=== PATIENT | male | born 1985 | race Two or more races ===

== ENCOUNTER 2024-09-19 16:42 | Emergency (ER) | payer MEDICAID ==
[~2024-09-19] VITALS: Ht 180.3 cm; Wt 90.0 kg
[2024-09-19] MEDS ORDERED: MORPHINE SULFATE 4 MG/ML SYR/VIAL IM ONE (17:00)
[2024-09-19 17:11] LABS: Urine Bacteria None Seen /hpf (None Seen)
[2024-09-19 17:17] LABS: Basophils # (auto) 0.1 10 ^3/uL (0-0.2); Eosinophils # (auto) 0.1 10 ^3/uL (0-0.8); Eosinophils % (auto) 1.1 % (0.0-7.0); Hemoglobin 13.4 g/dL (13.5-17.5); Nucleated Red Blood Cells % 0.1 %
[2024-09-19 17:18] LABS: Basophils % (auto) 0.8 % (0.0-2.0); Hematocrit 41.2 % (41.0-53.0); Lymphocytes # (auto) 1.7 10 ^3/uL (0.4-5.4); Lymphocytes % (auto) 18.1 % (10.0-50.0); Mean Corpuscular Hemoglobin 26.1 pg (28.0-32.0); Mean Corpuscular Hgb Conc. 32.6 g/dL (32.0-36.0); Mean Corpuscular Volume 80.1 fL (80.0-100.0); Monocytes # (auto) 0.6 10 ^3/uL (0-1.3); Monocytes % (auto) 6.9 % (0.0-12.0); Neutrophils # (auto) 6.8 10 ^3/uL (1.6-8.6); Neutrophils % (auto) 73.1 % (37.0-80.0); Platelet Count (auto) 332 10^3/uL (140-450); Red Blood Cells 5.14 10^6/uL (4.5-5.90); Red Cell Distribution Width 15.3 % (11.8-14.3); White Blood Cell 9.3 10^3/uL (4.4-10.8)
[2024-09-19 17:59] LABS: Urine Blood 2+ /uL (Negative); Urine Clarity Clear (Clear); Urine Color Yellow (Yellow); Urine Mucus FEW (None Seen); Urine Protein, UAD TRACE (Negative); Urine Specific Gravity 1.035 (1.001-1.035); Urine Squamous Epithelial Cell FEW /hpf (<5); Urine Urobilinogen Normal (Negative); Urine WBC 3 /hpf (0 - 3)
--- NOTE | 2024-09-19 19:18 | DVH ---
Exam: CT CT AB PEL WO CON-NO ORAL OR IV History: abd pain Comparison Study: None available at time of dictation. TECHNIQUE: Multidetector CT of the abdomen was performed from lung bases to pubic symphysis. Imaging was performed without IV contrast. Axial, coronal and sagittal multiplanar reformats were obtained fr om the axial data set by the technologist. Radiation Dose Information: CT Dose: CTDI volume is 7.15 mGy. Dose-length product is 384.69 mGy*cm FINDINGS: Evaluation of solid organs is limited due to lack of intravenous contrast use. Findings: Lung Bases: No acute or significant lung base finding. Normal heart size. No pleural or pericardial effusion. Liver: The liver is normal in size. No focal lesions. Gallbladder and Biliary Tree: Unremarkable Spleen: Unremarkable Pancreas: The pancreas is grossly normal in appearance. Adrenal Glands: Unremarkable Kidneys: Small bilateral renal calculi . Mild left hydronephrosis with hydroureter to the pelvis wher e there is a 5.7 mm distal left ureteral calculus. Bladder: Grossly unremarkable for degree of distention. Bowel: The stomach is grossly normal in appearance. Small bowel and colon are normal in caliber and d istribution. Contrast is noted scattered throughout the colon no findings to suggest bowel obstructio n. The appendix is not visualized; however, no secondary findings of acute appendicitis identified. Ascites: Absent Lymphadenopathy: No mesenteric, retroperitoneal or periportal lymphadenopathy. Abdominal Wall and Mesentery: Unremarkable. Vasculature: The visualized abdominal aorta is normal in size and caliber. Evaluation of abdominal a nd pelvic vessels is limited due to lack of intravenous contrast. Pelvic Organs: Unremarkable Musculoskeletal: No aggressive focal bony lesions, acute fractures or dislocation. Soft tissues: Unremarkable IMPRESSION: 1. Scattered calculi in both kidneys with mild left hydronephrosis and hydroureter to the distal uret er where there is a 5.7 mm calculus. Radiation optimization: All CT scans at this facility use at least one of these dose optimization te chniques: automated exposure control mA and/or kV adjustment per patient size (includes targeted exa ms where dose is matched to clinical indication) or iterative reconstruction. HS:Y
[2024-09-19] MEDS ORDERED: TAMS-35 PO (19:31)
[2024-09-19] MEDS ORDERED: HYDR-4902 PO (19:31)
--- NOTE | 2024-09-19 19:33 | ED.PDOC ---
GI ASSESSMENT HPI Comments 38-year-old male complaining of left lower quadrant pain x2 days. Pain has been getting worse. Reports 06/10 pain. Nothing makes it better, nothing makes it worse. No new foods no new medications. No prior history kidney stones no prior history of abdominal surgeries. Chief Complaint: Abdominal Pain Time Seen by MD: 16:50 Reviewed Notes: Nurses Notes Allergies: Coded Allergies: NO KNOWN ALLERGIES (Unverified , 09/19/24) Information Source: Patient Mode of Arrival: Ambulatory Past Medical History PAST MEDICAL HISTORY: Denies Surgical History: Denies all surgeries Constitutional: denies: chills, diaphoresis, fatigue, fever, malaise, sweats, weakness, others EENTM: denies: blurred vision, double vision, ear bleeding, ear discharge, ear drainage, ear pain, ear ringing, eye pain, eye redness, hearing loss, mouth pain, mouth swelling, nasal discharge, nose bleeding, nose congestion, nose pain, photophobia, tearing, throat pain, throat swelling, voice changes, others Respiratory: denies: cough, hemoptysis, orthopnea, SOB at rest, shortness of breath, SOB with excertion, stridor, wheezing, others Cardiovascular: denies: chest pain, dizzy spells, diaphoresis, Dyspnea on exertion, edema, irregular heart beat, left arm pain, lightheadedness, palpitations, PND, syncope, others Gastrointestinal: reports: abdomen distended, abdominal pain; denies: blood streaked bowels, constipated, diarrhea, dysphagia, difficulty swallowing, hematemesis, melena, nausea, poor appetite, poor fluid intake, rectal bleeding, rectal pain, vomiting, others Genitourinary: denies: burning, dysuria, flank pain, frequency, hematuria, incontinence, penile discharge, penile sore, pain, testicle pain, testicle swelling, urgency, others Neurological: denies: dizziness, fainting, headache, left sided numbness, left sided weakness, numbness, paresthesia, pre-existing deficit, right sided numbness, right sided weakness, seizure, speech problems, tingling, tremors, weakness, others Musculoskeletal: reports: back pain; denies: gout, joint pain, joint swelling, muscle pain, muscle stiffness, neck pain, others Integumetry: denies: bruises, change in color, change in hair/nails, dryness, laceration, lesions, lumps, rash, wounds, others Allergic/Immunocompromised: denies: Difficulty Healing, Frequent Infections, Hives, Itching, others Physical Exam General Appearance: No Apparent Distress, Normal HEENT: Normal ENT Inspection, Pharynx Normal, TMs Normal Neck: Full Range of Motion, Non-Tender, Normal, Normal Inspection Respiratory: Chest Non-Tender, Lungs Clear, No Accessory Muscle Use, No Respiratory Distress, Normal Breath Sounds Cardiovascular: No Edema, No JVD, No Murmur, No Gallop, Normal Peripheral Pulses, Regular Rate/Rhythm Breast Exam: Deferred Gastrointestinal: LLQ, LUQ, No Organomegaly, Normal Bowel Sounds, Soft, Tenderness (Tender to palpation over left quadrants.) Genitalia: Deferred Pelvic: Deferred Rectal: Deferred Extremities: No calf tenderness, Normal capillary refill, Normal inspection, Normal range of motion, Non-tender, No pedal edema Musculoskeletal : Apperance: Normal Neurologic: Alert, clinical research physician II-XII nml as Tested, No Motor Deficits, Normal Affect, Normal Mood, No Sensory Deficits Cerebellar Function: Normal Reflexes: Normal Skin: Dry, Normal Color, Warm Lymphatic: No Adenopathy Was a procedure done? Was a procedure done?: No GI differential Dx Differential Diagnosis: Bowel Obstruction, Cholecystitis, Gastritis/PUD, Gastroenteritis, Pancreatitis, , Bacterial, Kidney Stone X-Ray, Labs, Meds, VS Vital Signs Date Time Temp Pulse Resp B/P (MAP) Pulse Ox O2 Delivery O2 Flow Rate FiO2 09/19/24 16:55 98.6 66 16 139/83 (101) 100 Lab Test 09/19/24 17:02 09/19/24 16:53 Range/Units White Blood Count 9.3 4.4-10.8 10^3/uL Red Blood Count 5.14 4.5-5.90 10^6/uL Hemoglobin 13.4 L 13.5-17.5 g/dL Hematocrit 41.2 41.0-53.0 % Mean Corpuscular Volume 80.1 80.0-100.0 fL Mean Corpuscular Hemoglobin 26.1 L 28.0-32.0 pg Mean Corpuscular Hemoglobin Concent 32.6 32.0-36.0 g/dL Red Cell Distribution Width 15.3 H 11.8-14.3 % Platelet Count 332 140-450 10^3/uL Mean Platelet Volume 7.4 6.9-10.8 fL Neutrophils (%) (Auto) 73.1 37.0-80.0 % Lymphocytes (%) (Auto) 18.1 10.0-50.0 % Monocytes (%) (Auto) 6.9 0.0-12.0 % Eosinophils (%) (Auto) 1.1 0.0-7.0 % Basophils (%) (Auto) 0.8 0.0-2.0 % Neutrophils # (Auto) 6.8 1.6-8.6 10 ^3/uL Lymphocytes # (Auto) 1.7 0.4-5.4 10 ^3/uL Monocytes # (Auto) 0.6 0-1.3 10 ^3/uL Eosinophils # (Auto) 0.1 0-0.8 10 ^3/uL Basophils # (Auto) 0.1 0-0.2 10 ^3/uL Nucleated Red Blood Cells 0.1 % Lipase 30 12-53 U/L Urine Color Yellow Yellow Urine Clarity Clear Clear Urine pH 6.0 5.0-9.0 Urine Specific [place] 1.035 1.001-1.035 Urine Protein Trace H Negative Urine Ketones 1+ H Negative Urine Blood 2+ H Negative /uL Urine Nitrite Negative Negative Urine Bilirubin Negative Negative Urine Urobilinogen Normal Negative mg/dL Urine Leukocyte Esterase Negative Negative /uL Urine RBC 34 0 - 3 /hpf Urine WBC 3 0 - 3 /hpf Urine Squamous Epithelial Cells Few <5 /hpf Urine Bacteria None seen None Seen /hpf Urine Mucus Few None Seen Urine Glucose Normal Normal mg/dL X-Ray, Labs, Meds, VS Comment Imaging: X-rays and CT scans were reviewed and interpreted by this provider, 5 mm kidney stone on left side. Pending radiology review. Laboratory: Labs reviewed and interpreted by this provider. No significant abnormalities noted. Patient has prior medical visits reviewed. Med reconciliation performed Vital signs reviewed Time of 1ST Reevaluation: 19:32 Reevaluation 1ST: Improved Patient Education/Counseling: Diagnosis, Treatment, Need For Follow Up (Patient advised to follow-up in the emergency room in the next 24 to 48 hours if symptoms do not improve. Advised follow-up with PCP in the next 3 to 5 days. Patient verbalized understanding. ) Family Education/Counseling: Diagnosis Departure 1 Departure Time of Disposition: 19:28 Impression: Primary Impression: Kidney stone on left side Disposition: HOME / SELF CARE / HOMELESS Condition: Fair e-Prescriptions Hydrocodone-Acetaminophen (Hydrocodone Bitartrate/AC 5-325 mg) 1 Tab Tab 1 TAB PO TID PRN, #20 TAB Prov: SOLITARIO WALKER 09/19/24 Tamsulosin Hcl (Flomax) 0.4 Mg Cap 1 CAP PO DAILY for 10 Days, #10 CAP 11 Refills Prov: SOLITARIO WALKER 09/19/24 Discharged With: Self Critical Care Note Critical Care Time?: No Stability Stability form required: No Heart Score Heart Score: Heart Score Response (Comments) Value History N/A 0 EKG N/A 0 Age N/A 0 Risk Factors N/A 0 Troponin N/A 0 Total 0 SOLITARIO WALKER Sep 19, 2024 19:33
[2024-09-19 19:43] LABS: Albumin 4.6 g/dL (3.2-4.8); Alkaline Phosphatase 86 U/L (46-116); Anion Gap 10 (5-15); Aspartate Aminotransferase 35 U/L (13-40); BUN/Creatinine Ratio 6.8 (10.0-20.0); Blood Urea Nitrogen 16 mg/dL (9-23); Carbon Dioxide 24 mmol/L (20-31); Chloride 102 mmol/L (98-107); Glucose 93 mg/dL (74-106); Potassium 3.8 mmol/L (3.5-5.1)
[2024-09-19 19:44] LABS: Bilirubin, Total 0.8 mg/dL (0.2-1.0)
[2024-09-19 19:45] LABS: Alanine Aminotransferase 84 U/L (7-40); Calcium 10.5 mg/dL (8.7-10.4); Sodium 136 mmol/L (136-145)
[2024-09-19 20:15] VITALS: BP 125/84; PULSE 55; RESP 19; TEMP 97.8
[2024-09-19 20:16] VITALS: O2SAT 99
[2024-09-19] MEDS: KETOROLAC TROMETH 30 MG/ML 1ML VIAL IM ONE (20:26)
[2024-09-19] MEDS: ONDANSETRON ODT 4 MG TAB PO ONE (20:26)
== END 2024-09-19 20:27 | disposition home or self-care (01) ==
LOC: ER 16:42
DX: N13.2 Hydronephrosis with renal and ureteral calculous obstruction (principal)
CPT/HCPCS: 36415; 74176; 80053; 81001; 83690; 85025; 96372; 99285; J1885; Q0162

== ENCOUNTER 2024-09-22 15:44 | Inpatient (IN) | payer MEDICAID ==
[~2024-09-22] VITALS: Ht 182.9 cm; Wt 94.2 kg
[~2024-09-22 15:44] MED LIST: HYDR-4902 PO; TAMS-35 PO
--- NOTE | 2024-09-22 16:54 | ED.PDOC ---
General HPI Comments HPI: Poor Historian. HPI: 38 year old male presents to the ED with chief complaint of left flank pain. Patient reports that he has been experiencing LUQ abdominal pain that radiates to his left sided flank pain for the past 4 days. Patient relays that he had been seen by the ED 2 days ago for the same complaint and was found to have a kidney stone in the left kidney, so he was prescribed Flomax and [place]. 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 Patient states he has associated symptoms of difficulty urinating and constipation. Patient denies any N/V/D, dizziness, fever, chills, dysuria, or hematuria. Initial Vitals: Temp: 98.3F BP: 163/98 HR: 127 RR: 18 O2 Sat.: 98% Past Medical History: Denies Past Surgical History: Denies Social History: Denies smoking, ETOH, and drug use Medication: Denies Allergies: NKDA NASREEN REVIEW OF SYSTEMS: CONSTITUTIONAL: Denies acute: fever, diaphoresis, chills, generalized weakness. HEAD: Denies acute: headache, photophobia Eyes: Denies acute: Double vision, vision loss, eye pain, eye discharge. EARS: Denies acute: tinnitus, hearing loss, ear discharge, ear pain, THROAT: Denies acute: sore throat, swelling, difficulty swallowing , pain with swallowing, change in voice. NECK: Denies acute: neck pain, neck swelling, stiff neck. HEART: Denies acute : chest pain, palpitations, LUNGS: Denies acute: SOB, wheezing, cough, hemoptysis ABDOMEN: Denies acute: abdominal pain, Nausea, Vomiting, diarrhea, melena , hematemesis, hematochezia SKIN: Denies acute: rash, redness, lesions, itchiness. EXTREMITIES: Denies acute: calf pain, numbness, tingling, weakness, denies pain in extremity. Denies acute: Low back pain. Neuro: Denies acute: focal neurological deficit, motor or sensory focal neurological deficit, tremors, seizure like activity, confusion, dizziness, change in mental status, loss of bowel or bladder function, cauda equina like symptoms. : Denies acute: dysuria, hematuria, increase in urinary frequency. PSYCH: Denies acute: hallucination, suicidal ideation, homicidal ideation. PHYSICAL EXAM: General: no acute distress, awake and alert. Head: normocephalic, atraumatic. Neck: supple, trachea is midline, no swelling. Throat: Normal phonation. Eyes:, no erythema, no purulent discharge, no proptosis, no icterus. Heart: regular rate, regular rhythm, no significant murmur appreciated. Lungs: no apparent respiratory distress, Able to speak in full sentences. No wheezing, no rhonchi, no crackles. No stridors Clear to auscultation bilaterally. Abdomen: Left upper quadrant tender to palpation, non distended, soft, no guarding, no rebound, + bowel sounds. Neuro: Awake, Alert, oriented to name, self, situation, follows commands GCS=15. Speech is normal. Skin: no petechia, no purpura, no cyanosis, non-pale, not jaundice. Lower extremities: --no - Pitting edema no deformity, no focal swelling, no calf TTP. Makes eye contact. moves all four extremities. Face: no apparent facial droop. Left CVA tenderness to percussion . Ambulating in the ED independently. Chief Complaint: Flank Pain Time Seen by MD: 16:49 Primary Care Provider: NONE Reviewed notes: Nurses Notes, Medications, Allergies Allergies: Coded Allergies: NO KNOWN ALLERGIES (Unverified , 09/19/24) Home Meds Active Scripts Hydrocodone-Acetaminophen (Hydrocodone Bitartrate/AC 5-325 mg) 1 Tab Tab, 1 TAB PO QID PRN, #30 TAB Prov:SEBASTIÁN RAMÍREZ MD 09/27/24 Tamsulosin Hcl (Flomax) 0.4 Mg Cap, 1 CAP PO DAILY, #30 CAP 11 Refills Prov:SEBASTIÁN RAMÍREZ MD 09/27/24 Hydrocodone-Acetaminophen (Hydrocodone Bitartrate/AC 5-325 mg) 1 Tab Tab, 1 TAB PO TID PRN, #20 TAB Prov:SOLITARIO WALKER 09/19/24 Tamsulosin Hcl (Flomax) 0.4 Mg Cap, 1 CAP PO DAILY for 10 Days, #10 CAP 11 Refills Prov:SOLITARIO WALKER 09/19/24 Information Source: Patient Mode of Arrival: Ambulatory Was a procedure done? Was a procedure done?: No Differential Diagnosis Kidney stone (Female): N/A Kidney stone (Male): Other (Flank Pain;DDX include Nephrolethiasis, obstructive uropathy, kidney cancer, renal infarct, intraabdominal neoplasm, lower lobe pneu monia, retroperitoneal hemorrhage, pancreatitis, aneurysm, dissection, musculoskeletal, rib contusion/trauma, hematoma, PYLONEPHRITIS, muscle strain, spinal disease.) X-Ray, Labs, Meds, VS Vital Signs Date Time Temp Pulse Resp B/P (MAP) Pulse Ox O2 Delivery O2 Flow Rate FiO2 09/22/24 16:05 98.3 127 18 163/98 (119) 98 Lab Test 09/22/24 18:32 09/22/24 17:16 09/22/24 16:45 Range/Units Lactic Acid Level 1.4 2.2 *H 0.4-2.0 mmol/L Urine Color Colorless Yellow Urine Clarity Clear Clear Urine pH 5.5 5.0-9.0 Urine Specific [place] 1.004 1.001-1.035 Urine Protein Negative Negative Urine Ketones Negative Negative Urine Blood Negative Negative /uL Urine Nitrite Negative Negative Urine Bilirubin Negative Negative Urine Urobilinogen Normal Negative mg/dL Urine Leukocyte Esterase Negative Negative /uL Urine RBC 1 0 - 3 /hpf Urine Microscopic WBC 1 0-3 /HPF Urine Squamous Epithelial Cells None seen <5 /hpf Urine Bacteria None seen None Seen /hpf Urine Glucose Normal Normal mg/dL White Blood Count 9.4 4.4-10.8 10^3/uL Red Blood Count 4.82 4.5-5.90 10^6/uL Hemoglobin 12.8 L 13.5-17.5 g/dL Hematocrit 38.6 L 41.0-53.0 % Mean Corpuscular Volume 80.2 80.0-100.0 fL Mean Corpuscular Hemoglobin 26.5 L 28.0-32.0 pg Mean Corpuscular Hemoglobin Concent 33.1 32.0-36.0 g/dL Red Cell Distribution Width 14.8 H 11.8-14.3 % Platelet Count 330 140-450 10^3/uL Mean Platelet Volume 7.4 6.9-10.8 fL Neutrophils (%) (Auto) 72.4 37.0-80.0 % Lymphocytes (%) (Auto) 17.2 10.0-50.0 % Monocytes (%) (Auto) 9.6 0.0-12.0 % Eosinophils (%) (Auto) 0.5 0.0-7.0 % Basophils (%) (Auto) 0.3 0.0-2.0 % Neutrophils # (Auto) 6.8 1.6-8.6 10 ^3/uL Lymphocytes # (Auto) 1.6 0.4-5.4 10 ^3/uL Monocytes # (Auto) 0.9 0-1.3 10 ^3/uL Eosinophils # (Auto) 0.1 0-0.8 10 ^3/uL Basophils # (Auto) 0 0-0.2 10 ^3/uL Nucleated Red Blood Cells 0.1 % Sodium Level 134 L 136-145 mmol/L Potassium Level 3.5 3.5-5.1 mmol/L Chloride Level 102 98-107 mmol/L Carbon Dioxide Level 24 20-31 mmol/L Anion Gap 8 5-15 Blood Urea Nitrogen 12 9-23 mg/dL Creatinine 2.30 H 0.700-1.30 mg/dL Glomerular Filtration Rate Calc 37 >90 mL/min BUN/Creatinine Ratio 5.2 L 10.0-20.0 Serum Glucose 123 H 74-106 mg/dL Calcium Level 10.3 8.7-10.4 mg/dL Total Bilirubin 0.8 0.2-1.0 mg/dL Aspartate Amino Transferase (AST) 20 13-40 U/L Alanine Aminotransferase (ALT) 53 H 7-40 U/L Alkaline Phosphatase 95 46-116 U/L Total Protein 8.2 5.7-8.2 g/dL Albumin 4.6 3.2-4.8 g/dL [place] [id number] Ph: [phone] DIAGNOSTIC IMAGING Diagnostic Imaging Report : [id number] Signed PATIENT: SHAUN DOWNEYCCT: [id number] UNIT: [id number] : 1985 LOC: ER ROOM / BED: / AGE / SEX: 38 / M ADM STATUS: REG ER SERVICE [id number] ORDERING PHYSICIAN: DORETHA AVITIA DO PROCEDURE(s): ABPL - CT AB PEL WO CON-NO ORAL OR IV REASON: L flank pain ORDER NUMBER(s): [id number], ACCESSION NUMBER(s): [id number] CT ABDOMEN AND PELVIS WITHOUT CONTRAST CLINICAL HISTORY: L flank pain TECHNIQUE: Multiple contiguous axial images of the abdomen and pelvis without intravenous contrast. The images were reformatted degenerate coronal and sagittal reconstructions. All CT scans at this medical facility are performed using dose modulation techniques as appropriate to a performed exam including the following:Automated exposure control was utilized; adjustment of the MA and/or KV according to patient size; and use of iterative reconstruction technique. Radiation Dose Information: CT Dose: CTDI volume is 8.27 mGy. Dose-length product is 476.51 mGy*cm Comparison: CT CT AB PEL WO CON-NO ORAL OR IV on DOS: 09/19/24 FINDINGS: Evaluation of the abdomen and pelvis is limited without intravenous contrast. There is a 6 mm calculus at the left ureterovesical junction. There is mild left hydroureteronephrosis similar to the prior study. Again seen are small bilateral renal calculi, [id number]-left. There is no right renal hydronephrosis. The liver, gallbladder, pancreas, adrenal glands, and spleen appear within normal limits. There is no gross evidence of abdominal lymphadenopathy. There is no free fluid or free air. The stomach grossly appears unremarkable. The small and large bowel loops demonstrate normal caliber. The abdominal aorta and IVC appear within normal limits. The bladder is decompressed limiting evaluation. Pelvic organ appears within normal limits. There is no gross evidence of a pelvic mass. There is no free fluid collection. Lung bases are clear. There is no acute osseous abnormality. IMPRESSION: 1. 6 mm calculus at the left ureterovesical junction. There is mild left hydroureteronephrosis similar to the prior study. 2. There are additional small bilateral renal calculi, [id number]-left. There is no right renal hydronephrosis. HS:Y ATED BY: LUIS F GONZALEZ MD DICTATED DATE/TIME: 09/22/241654 SIGNED BY: LUIS F GONZALEZ MD SIGNED DATE/TIME: 09/22/241654 CC: Time of 1ST Reevaluation: 20:35 Reevaluation 1ST: Improved Patient Education/Counseling: Diagnosis, Treatment Family Education/Counseling: No Family Present Comments Patient presented with the above HPI.---flank pain---workup was initiated. patient was found with the above mentioned diagnosis. the following medications were ordered: night monitor and, CBC, CMP, lactic acid, UA, CT abdomen and pelvis no contrast, EKG, NS fluids, Flomax, [place], Patient ED course and VS have been stabilized. Patient has been reassessed in the ED and remained in a stable condition. Pertinent incidental findings were discussed with the patient and/or family. Patient/family voices understanding and is agreeable with plan. Patient has been observed in the ED adequate length of time to insure improvement/stability. Escalation of care considered: Consideration of escalation to observation or admission Patient was ADMITTED to the medicine team for further evaluation and treatment of their presentation. All the reports of any imaging studies that were ordered by myself were reviewed by myself. Departure 1 Departure Time of Disposition: 17:48 Impression: Primary Impression: Kidney stone on left side Additional Impressions: Hydronephrosis Acute renal insufficiency Disposition: ADMITTED INPATIENT Admit to: Tele Condition: Guarded e-Prescriptions Hydrocodone-Acetaminophen (Hydrocodone Bitartrate/AC 5-325 mg) 1 Tab Tab 1 TAB PO QID PRN, #30 TAB Prov: SEBASTIÁN RAMÍREZ MD 09/27/24 Tamsulosin Hcl (Flomax) 0.4 Mg Cap 1 CAP PO DAILY, #30 CAP 11 Refills Prov: SEBASTIÁN RAMÍREZ MD 09/27/24 Discharged With: Self Critical Care Note Critical Care Time?: No I personally scribed for DORETHA AVITIA DO ([email or web address]) on 09/22/24 at 16:54. Electronically submitted by Bryce Voss ([email or web address]). I personally scribed for DORETHA AVITIA DO ([email or web address]) on 09/22/24 at 17:31. Electronically submitted by Bryce Voss ([email or web address]). I personally scribed for DORETHA AVITIA DO ([email or web address]) on 09/22/24 at 20:37. Electronically submitted by Pavithra Mancilla ([email or web address]). I personally scribed for DORETHA AVITIA DO ([email or web address]) on 09/22/24 at 20:39. Electronically submitted by Pavithra Mancilla ([email or web address]). I personally scribed for DORETHA AVITIA DO ([email or web address]) on 09/22/24 at 21:43. Electronically submitted by Pavithra Mancilla ([email or web address]). DORETHA AVITIA DO Sep 22, 2024 16:54
--- NOTE | 2024-09-22 16:57 | DVH ---
CT ABDOMEN AND PELVIS WITHOUT CONTRAST CLINICAL HISTORY: L flank pain TECHNIQUE: Multiple contiguous axial images of the abdomen and pelvis without intravenous contrast. The images were reformatted degenerate coronal and sagittal reconstructions. All CT scans at this medical facility are performed using dose modulation techniques as appropriate t o a performed exam including the following:Automated exposure control was utilized; adjustment of the MA and/or KV according to patient size; and use of iterative reconstruction technique. Radiation Dose Information: CT Dose: CTDI volume is 8.27 mGy. Dose-length product is 476.51 mGy*cm Comparison: CT CT AB PEL WO CON-NO ORAL OR IV on DOS: 09/19/24 FINDINGS: Evaluation of the abdomen and pelvis is limited without intravenous contrast. There is a 6 mm calculus at the left ureterovesical junction. There is mild left hydroureteronephrosi s similar to the prior study. Again seen are small bilateral renal calculi, [id number]-left. There is no right renal hydronephrosis. The liver, gallbladder, pancreas, adrenal glands, and spleen appear within normal limits. There is no gross evidence of abdominal lymphadenopathy. There is no free fluid or free air. The stomach grossly appears unremarkable. The small and large bowel loops demonstrate normal caliber . The abdominal aorta and IVC appear within normal limits. The bladder is decompressed limiting evaluation. Pelvic organ appears within normal limits. There is no gross evidence of a pelvic mass. There is no free fluid collection. Lung bases are clear. There is no acute osseous abnormality. IMPRESSION: 1. 6 mm calculus at the left ureterovesical junction. There is mild left hydroureteronephrosis simila r to the prior study. 2. There are additional small bilateral renal calculi, [id number]-qnrykln-uhfx-left. There is no right sun al hydronephrosis. HS:Y
[2024-09-22 17:17] LABS: Urine Bacteria None Seen /hpf (None Seen)
[2024-09-22 17:18] LABS: Basophils # (auto) 0 10 ^3/uL (0-0.2); Basophils % (auto) 0.3 % (0.0-2.0); Eosinophils # (auto) 0.1 10 ^3/uL (0-0.8); Eosinophils % (auto) 0.5 % (0.0-7.0); Hematocrit 38.6 % (41.0-53.0); Hemoglobin 12.8 g/dL (13.5-17.5); Lymphocytes # (auto) 1.6 10 ^3/uL (0.4-5.4); Lymphocytes % (auto) 17.2 % (10.0-50.0); Mean Corpuscular Hemoglobin 26.5 pg (28.0-32.0); Mean Corpuscular Hgb Conc. 33.1 g/dL (32.0-36.0); Mean Corpuscular Volume 80.2 fL (80.0-100.0); Monocytes # (auto) 0.9 10 ^3/uL (0-1.3); Monocytes % (auto) 9.6 % (0.0-12.0); Neutrophils # (auto) 6.8 10 ^3/uL (1.6-8.6); Neutrophils % (auto) 72.4 % (37.0-80.0); Nucleated Red Blood Cells % 0.1 %; Platelet Count (auto) 330 10^3/uL (140-450); Red Blood Cells 4.82 10^6/uL (4.5-5.90); Red Cell Distribution Width 14.8 % (11.8-14.3); White Blood Cell 9.4 10^3/uL (4.4-10.8)
[2024-09-22 17:34] LABS: Albumin 4.6 g/dL (3.2-4.8); Alkaline Phosphatase 95 U/L (46-116); Anion Gap 8 (5-15); Aspartate Aminotransferase 20 U/L (13-40); BUN/Creatinine Ratio 5.2 (10.0-20.0); Blood Urea Nitrogen 12 mg/dL (9-23); Calcium 10.3 mg/dL (8.7-10.4); Carbon Dioxide 24 mmol/L (20-31); Chloride 102 mmol/L (98-107); Potassium 3.5 mmol/L (3.5-5.1)
[2024-09-22 17:35] LABS: Bilirubin, Total 0.8 mg/dL (0.2-1.0)
[2024-09-22 17:36] LABS: Urine Blood Negative /uL (Negative); Urine Clarity Clear (Clear); Urine Color Colorless (Yellow); Urine Protein, UAD Negative (Negative); Urine Specific Gravity 1.004 (1.001-1.035); Urine Squamous Epithelial Cell None Seen /hpf (<5); Urine Urobilinogen Normal (Negative); Urine WBC 1 /HPF (0-3); Urine pH 5.5 (5.0-9.0)
[2024-09-22 17:39] LABS: Alanine Aminotransferase 53 U/L (7-40); Glucose 123 mg/dL (74-106); Sodium 134 mmol/L (136-145); Total Protein 8.2 g/dL (5.7-8.2)
[2024-09-22 17:44] LABS: Lactic Acid w/Reflex 2.2 mmol/L (0.4-2.0)
[2024-09-22] MEDS ORDERED: ONDANSETRON HCL 4 MG/2 ML VIAL IV PRN (20:00)
[2024-09-22] MEDS ORDERED: TEMAZEPAM 15 MG CAP PO PRN (20:00)
[2024-09-22] MEDS ORDERED: ACETAMINOPHEN 325 MG TAB PO PRN (20:00)
--- NOTE | 2024-09-22 21:39 | DVHHP2 ---
History of Present Illness Reason for Visit: Flank pain History of Present Illness 38-year-old male presents for evaluation of left flank pain. Patient reports a two day history of left-sided flank pain that is sharp in nature with associated nausea and vomiting. He also reports occasional chills. Denies any other acute complaints at the moment. Past Medical History Denies Past Surgical History Denies Family History Noncontributory Smoke: No ALCOHOL: none Drugs: None Lives: with Family Review of Systems Review of Systems Review of systems are currently negative otherwise addressed in HPI Allergies: Coded Allergies: NO KNOWN ALLERGIES (Unverified , 09/19/24) Medications Current Medications Medications Dose Ordered Sig/Davida Route Start Time Stop Time Status Last Admin Dose Admin Acetaminophen/ Hydrocodone Bitart 1 tab Q4HP PRN PO 09/22/24 20:00 Temazepam 15 mg QHSP PRN PO 09/22/24 20:00 Ondansetron HCl 4 mg Q4HP PRN IV 09/22/24 20:00 Acetaminophen 650 mg Q6HP PRN PO 09/22/24 20:00 Morphine Sulfate 2 mg Q6HPRN PRN IV 09/22/24 20:00 Exam Vital Signs Vital Signs Date Time Temp Pulse Resp B/P (MAP) Pulse Ox O2 Delivery O2 Flow Rate FiO2 09/22/24 16:05 98.3 127 18 163/98 (119) 98 Exam Gen: 38-year-old male in mild distress Skin: Warm, dry, normal color and texture, no rash. HEENT: Normocephalic atraumatic, mucous membranes moist and pink. Neck: Cervical and supraclavicular nodes normal without enlargement, trachea is midline, thyroid gland is normal without masses. Pulmonary: Clear to auscultation and percussion bilaterally. Cardiac: Regular rate and rhythm. No murmur Abdomen: Soft, left CVA tenderness, nondistended, bowel sounds present all 4 quadrants, no guarding, no rigidity, no organomegaly. Extremities: No cyanosis, clubbing, no edema Neuro: Cranial nerves II through XII grossly intact, normal affect and speech, no focal motor deficits. Labs/Xrays ORDERING PHYSICIAN: DORETHA AVITIA DO PROCEDURE(s): ABPL - CT AB PEL WO CON-NO ORAL OR IV REASON: L flank pain ORDER NUMBER(s): [id number], ACCESSION NUMBER(s): [id number] CT ABDOMEN AND PELVIS WITHOUT CONTRAST CLINICAL HISTORY: L flank pain TECHNIQUE: Multiple contiguous axial images of the abdomen and pelvis without intravenous contrast. The images were reformatted degenerate coronal and sagittal reconstructions. All CT scans at this medical facility are performed using dose modulation techniques as appropriate to a performed exam including the following:Automated exposure control was utilized; adjustment of the MA and/or KV according to patient size; and use of iterative reconstruction technique. Radiation Dose Information: CT Dose: CTDI volume is 8.27 mGy. Dose-length product is 476.51 mGy*cm Comparison: CT CT AB PEL WO CON-NO ORAL OR IV on DOS: 09/19/24 FINDINGS: Evaluation of the abdomen and pelvis is limited without intravenous contrast. There is a 6 mm calculus at the left ureterovesical junction. There is mild left hydroureteronephrosis similar to the prior study. Again seen are small bilateral renal calculi, [id number]-rigrcqr-wvhj-left. There is no right renal hydronephrosis. The liver, gallbladder, pancreas, adrenal glands, and spleen appear within normal limits. There is no gross evidence of abdominal lymphadenopathy. There is no free fluid or free air. The stomach grossly appears unremarkable. The small and large bowel loops demonstrate normal caliber. The abdominal aorta and IVC appear within normal limits. The bladder is decompressed limiting evaluation. Pelvic organ appears within normal limits. There is no gross evidence of a pelvic mass. There is no free fluid collection. Lung bases are clear. There is no acute osseous abnormality. IMPRESSION: 1. 6 mm calculus at the left ureterovesical junction. There is mild left hydroureteronephrosis similar to the prior study. 2. There are additional small bilateral renal calculi, [id number]-ocnl-left. There is no right renal hydronephrosis. HS:Y Labs Test 09/22/24 18:32 09/22/24 17:16 09/22/24 16:45 Range/Units Lactic Acid Level 1.4 0.4-2.0 mmol/L Urine Color Colorless Yellow Urine Clarity Clear Clear Urine pH 5.5 5.0-9.0 Urine Specific [place] 1.004 1.001-1.035 Urine Protein Negative Negative Urine Ketones Negative Negative Urine Blood Negative Negative /uL Urine Nitrite Negative Negative Urine Bilirubin Negative Negative Urine Urobilinogen Normal Negative mg/dL Urine Leukocyte Esterase Negative Negative /uL Urine RBC 1 0 - 3 /hpf Urine Microscopic WBC 1 0-3 /HPF Urine Squamous Epithelial Cells None seen <5 /hpf Urine Bacteria None seen None Seen /hpf Urine Glucose Normal Normal mg/dL White Blood Count 9.4 4.4-10.8 10^3/uL Red Blood Count 4.82 4.5-5.90 10^6/uL Hemoglobin 12.8 L 13.5-17.5 g/dL Hematocrit 38.6 L 41.0-53.0 % Mean Corpuscular Volume 80.2 80.0-100.0 fL Mean Corpuscular Hemoglobin 26.5 L 28.0-32.0 pg Mean Corpuscular Hemoglobin Concent 33.1 32.0-36.0 g/dL Red Cell Distribution Width 14.8 H 11.8-14.3 % Platelet Count 330 140-450 10^3/uL Mean Platelet Volume 7.4 6.9-10.8 fL Neutrophils (%) (Auto) 72.4 37.0-80.0 % Lymphocytes (%) (Auto) 17.2 10.0-50.0 % Monocytes (%) (Auto) 9.6 0.0-12.0 % Eosinophils (%) (Auto) 0.5 0.0-7.0 % Basophils (%) (Auto) 0.3 0.0-2.0 % Neutrophils # (Auto) 6.8 1.6-8.6 10 ^3/uL Lymphocytes # (Auto) 1.6 0.4-5.4 10 ^3/uL Monocytes # (Auto) 0.9 0-1.3 10 ^3/uL Eosinophils # (Auto) 0.1 0-0.8 10 ^3/uL Basophils # (Auto) 0 0-0.2 10 ^3/uL Nucleated Red Blood Cells 0.1 % Sodium Level 134 L 136-145 mmol/L Potassium Level 3.5 3.5-5.1 mmol/L Chloride Level 102 98-107 mmol/L Carbon Dioxide Level 24 20-31 mmol/L Anion Gap 8 5-15 Blood Urea Nitrogen 12 9-23 mg/dL Creatinine 2.30 H 0.700-1.30 mg/dL Glomerular Filtration Rate Calc 37 >90 mL/min BUN/Creatinine Ratio 5.2 L 10.0-20.0 Serum Glucose 123 H 74-106 mg/dL Calcium Level 10.3 8.7-10.4 mg/dL Total Bilirubin 0.8 0.2-1.0 mg/dL Aspartate Amino Transferase (AST) 20 13-40 U/L Alanine Aminotransferase (ALT) 53 H 7-40 U/L Alkaline Phosphatase 95 46-116 U/L Total Protein 8.2 5.7-8.2 g/dL Albumin 4.6 3.2-4.8 g/dL Assessment/Plan Assessment/Plan Assessment Obstructive uropathy Nephrolithiasis Left hydro ureteral nephrosis Acute kidney injury Plan Admit the patient to [facility] to the hospitalist Nephrology consultation Pain management Rocephin Continue treatment per orders. Plan discussed with: Patient My Orders Orders - HERMELINDA PEMBERTON Procedure Category Date Status Time * Urology Consult CONS 09/22/24 Transmitted 19:48 Basic Metabolic Panel LAB 09/23/24 Verified 04:00 Admit ADMIT 09/22/24 Transmitted 19:48 Hydrocodone-Acet PHA 09/22/24 In Process 5/325mg Tab ([place] 20:00 Temazepam (Restoril) PHA 09/22/24 In Process 20:00 Ondansetron Hcl PHA 09/22/24 In Process (Zofran) 20:00 Condition: Stable LAINE 09/22/24 In Process 19:48 Acetaminophen Tablet PHA 09/22/24 In Process (Tylenol Tablet) 20:00 Bedrest With Bathroom LAINE 09/22/24 In Process Privileg 19:48 Morphine Sulfate PHA 09/22/24 In Process Injection 20:00 Regular Diet DIET 09/23/24 Transmitted Breakfast Date of Service: Sep 22, 2024 Billing Provider: HERMELINDA PEMBERTON Common Visit Codes: [id number] INP/OBS CARE (MOD) HERMELINDA PEMBERTON Sep 22, 2024 21:39
[2024-09-23] VITALS (7 sets, daily range): BP systolic 113–131; BP diastolic 61–76; PULSE 68–127; RESP 14–18; TEMP 98–98.4; O2SAT 96–100
[2024-09-23] MEDS: TAMSULOSIN HYDROCHLORIDE 0.4 MG CAP PO ONE (01:22)
[2024-09-23] MEDS: HYDROcodone-ACET 5/325MG TAB PO ONE (01:22)
[2024-09-23] MEDS: SODIUM CHLORIDE 0.9% 1,000 ML IV ONE (01:40)
[2024-09-23] MEDS: MORPHINE SULFATE INJ 2 MG/ml SYRG IV PRN ×2 (03:31→20:41)
[2024-09-23 05:55] LABS: Anion Gap 7 (5-15); Carbon Dioxide 24 mmol/L (20-31); Chloride 104 mmol/L (98-107); Potassium 4.4 mmol/L (3.5-5.1)
[2024-09-23 05:56] LABS: Calcium 9.6 mg/dL (8.7-10.4)
[2024-09-23 06:00] LABS: Sodium 135 mmol/L (136-145)
[2024-09-23 06:01] LABS: Blood Urea Nitrogen 14 mg/dL (9-23); Glucose 92 mg/dL (74-106)
[2024-09-23 09:17] LABS: Hepatitis B Surface Antibody Positive (Negative); Hepatitis C Antibody Negative (Negative)
--- NOTE | 2024-09-23 13:42 | DVHPN2 ---
Reviewed: Care Plan, H&P, Labs, Medications, Previous Orders, Radiology Changes from previous H/P or p: No Changes Objective Vitals Vital Signs Date Time Temp Pulse Resp B/P (MAP) Pulse Ox O2 Delivery O2 Flow Rate FiO2 09/23/24 12:28 81 16 121/61 09/23/24 12:08 98.2 99 98.2 09/23/24 01:39 Room Air* 0 21 Medications Current Medications Medications Dose Ordered Sig/Davida Route Start Time Stop Time Status Last Admin Dose Admin Acetaminophen/ Hydrocodone Bitart 1 tab Q4HP PRN PO 09/22/24 20:00 Temazepam 15 mg QHSP PRN PO 09/22/24 20:00 Ondansetron HCl 4 mg Q4HP PRN IV 09/22/24 20:00 Acetaminophen 650 mg Q6HP PRN PO 09/22/24 20:00 Morphine Sulfate 2 mg Q6HPRN PRN IV 09/22/24 20:00 09/23/24 12:28 2 MG Tamsulosin HCl 0.4 mg QPM PO 09/23/24 18:00 UNV Laboratory Results Laboratory Tests 09/22/24 16:45 09/23/24 05:05 Chemistry Test 09/22/24 16:45 09/23/24 05:05 Albumin 4.6 g/dL (3.2-4.8) Calcium Level 10.3 mg/dL (8.7-10.4) 9.6 mg/dL (8.7-10.4) Total Protein 8.2 g/dL (5.7-8.2) LFT Test 09/22/24 16:45 Alanine Aminotransferase (ALT) 53 U/L (7-40) H Alkaline Phosphatase 95 U/L (46-116) Aspartate Amino Transferase (AST) 20 U/L (13-40) Total Bilirubin 0.8 mg/dL (0.2-1.0) Urinalysis Test 09/22/24 17:16 Urine Color Colorless (Yellow) Urine Clarity Clear (Clear) Urine pH 5.5 (5.0-9.0) Urine Specific [place] 1.004 (1.001-1.035) Urine Protein Negative (Negative) Urine Ketones Negative (Negative) Urine Blood Negative /uL (Negative) Urine Nitrite Negative (Negative) Urine Bilirubin Negative (Negative) Urine Urobilinogen Normal mg/dL (Negative) Urine Leukocyte Esterase Negative /uL (Negative) Urine RBC 1 /hpf (0 - 3) Urine Microscopic WBC 1 /HPF (0-3) Urine Squamous Epithelial Cells None seen /hpf (<5) Urine Bacteria None seen /hpf (None Seen) Urine Glucose Normal mg/dL (Normal) Labs and/or images reviewed: Labs reviewed by me, Image(s) reviewed by me Assessment/Plan Assessment/Plan Acute left flank pain 6 mm left UVJ stone with hydroureteronephrosis: IV fluids Flomax, [place], consult for urologist nurse practitioner Erum Cosme Acute dehydration: IV fluids Time spent 35 minutes Plan discussed with: Patient My Orders Orders - SEBASTIÁN RAMÍREZ MD Procedure Category Date Status Time Tamsulosin PHA 09/23/24 Transmitted Hydrochloride (Flomax) 18:00 Tamsulosin PHA 09/23/24 Transmitted Hydrochloride (Flomax) 13:45 Date of Service: Sep 23, 2024 Billing Provider: SEBASTIÁN RAMÍREZ MD Common Visit Codes: [id number] INP/OBS CARE(HIGH) SEBASTIÁN RAMÍREZ MD Sep 23, 2024 13:42
[2024-09-23] MEDS ORDERED: TAMSULOSIN HYDROCHLORIDE 0.4 MG CAP PO ONE (13:45)
[2024-09-23] MEDS: SODIUM CHLORIDE 0.9% 1,000 ML IV SCH (13:45)
--- NOTE | 2024-09-23 17:26 | DVHINCON2 ---
Date of service: Sep 23, 2024 Referring Physician Reason for Consultation ureteral stone History of Present Illness History Source: Patient, RN Notes, Old Records Exam Limitations: No limitations HPI 38 yo male with c/o left flank pain for the past several days. CT shows a 6 mm distal stone with moderate hydroureteronephrosis. He is seen in ER overflow, comfortable at the moment. Reports pain waxes and wanes. No urinary complaints. Denies fever. Creatinine is elevated 2.34 unknown baseline but denies medical history. Home Meds Active Scripts Hydrocodone-Acetaminophen (Hydrocodone Bitartrate/AC 5-325 mg) 1 Tab Tab, 1 TAB PO TID PRN, #20 TAB Prov:SOLITARIO WALKER CONTINUOUS DRYOUT OPERATOR HELPER 09/19/24 Tamsulosin Hcl (Flomax) 0.4 Mg Cap, 1 CAP PO DAILY for 10 Days, #10 CAP 11 Refills Prov:SOLITARIO WALKER CONTINUOUS DRYOUT OPERATOR HELPER 09/19/24 Past Medical History Patient Family History: Alcoholism G8 MOTHER G8 FATHER Depression G8 MOTHER Review of Systems Genitourinary: Pain H&P Exam Vital Signs Vital Signs Date Time Temp Pulse Resp B/P (MAP) Pulse Ox O2 Delivery O2 Flow Rate FiO2 09/23/24 15:13 98.4 71 16 123/63 (83) 100 98.4 09/23/24 01:39 Room Air* 0 21 General Appeara: Well developed, Well nourished, Normal Appearance Abdominal Exam: Normal bowel sounds, Soft, No tenderness, No hepatospenomegaly, No masses Back Exam: Left CVA tenderness Neuro/Mental St: Alert, Oriented Appearance: Appropriate appearance, Appropriate insight Eye contact/ Speech: Cooperative, Good eye contact, Normal speech Skin Exam: Normal inspection, Normal color, Warm/dry Labs/Xrays [facility] [id number] [place] [id number] Ph: [phone] DIAGNOSTIC IMAGING Diagnostic Imaging Report : [id number] Signed PATIENT: CANDIE DOWNEYT: [id number] UNIT: [id number] : 1985 LOC: ER ROOM / BED: / AGE / SEX: 38 / M ADM STATUS: REG ER SERVICE 1613 ORDERING PHYSICIAN: DORETHA AVITIA DO PROCEDURE(s): ABPL - CT AB PEL WO CON-NO ORAL OR IV REASON: L flank pain ORDER NUMBER(s): [id number], ACCESSION NUMBER(s): [id number] CT ABDOMEN AND PELVIS WITHOUT CONTRAST CLINICAL HISTORY: L flank pain TECHNIQUE: Multiple contiguous axial images of the abdomen and pelvis without intravenous contrast. The images were reformatted degenerate coronal and sagittal reconstructions. All CT scans at this medical facility are performed using dose modulation techniques as appropriate to a performed exam including the following:Automated exposure control was utilized; adjustment of the MA and/or KV according to patient size; and use of iterative reconstruction technique. Radiation Dose Information: CT Dose: CTDI volume is 8.27 mGy. Dose-length product is 476.51 mGy*cm Comparison: CT CT AB PEL WO CON-NO ORAL OR IV on DOS: 09/19/24 FINDINGS: Evaluation of the abdomen and pelvis is limited without intravenous contrast. There is a 6 mm calculus at the left ureterovesical junction. There is mild left hydroureteronephrosis similar to the prior study. Again seen are small bilateral renal calculi, [id number]-[id number]-left. There is no right renal hydronephrosis. The liver, gallbladder, pancreas, adrenal glands, and spleen appear within normal limits. There is no gross evidence of abdominal lymphadenopathy. There is no free fluid or free air. The stomach grossly appears unremarkable. The small and large bowel loops demonstrate normal caliber. The abdominal aorta and IVC appear within normal limits. The bladder is decompressed limiting evaluation. Pelvic organ appears within normal limits. There is no gross evidence of a pelvic mass. There is no free fluid collection. Lung bases are clear. There is no acute osseous abnormality. IMPRESSION: 1. 6 mm calculus at the left ureterovesical junction. There is mild left hydroureteronephrosis similar to the prior study. 2. There are additional small bilateral renal calculi, dsngf-[id number]-gbwq-left. There is no right renal hydronephrosis. HS:Y ATED BY: LUIS F GONZALEZ MD DICTATED DATE/TIME: 09/22/241654 SIGNED BY: LUIS F GONZALEZ MD SIGNED DATE/TIME: 09/22/241654 CC: Labs Test 09/23/24 05:05 09/22/24 18:32 09/22/24 17:16 09/22/24 16:45 Range/Units Sodium Level 135 L 136-145 mmol/L Potassium Level 4.4 3.5-5.1 mmol/L Chloride Level 104 98-107 mmol/L Carbon Dioxide Level 24 20-31 mmol/L Anion Gap 7 5-15 Blood Urea Nitrogen 14 9-23 mg/dL Creatinine 2.34 H 0.700-1.30 mg/dL Glomerular Filtration Rate Calc 36 >90 mL/min BUN/Creatinine Ratio 6.0 L 10.0-20.0 Serum Glucose 92 74-106 mg/dL Calcium Level 9.6 8.7-10.4 mg/dL Hepatitis B Surface Antibody Positive H Negative Hepatitis C Antibody Negative Negative Lactic Acid Level 1.4 0.4-2.0 mmol/L Urine Color Colorless Yellow Urine Clarity Clear Clear Urine pH 5.5 5.0-9.0 Urine Specific [place] 1.004 1.001-1.035 Urine Protein Negative Negative Urine Ketones Negative Negative Urine Blood Negative Negative /uL Urine Nitrite Negative Negative Urine Bilirubin Negative Negative Urine Urobilinogen Normal Negative mg/dL Urine Leukocyte Esterase Negative Negative /uL Urine RBC 1 0 - 3 /hpf Urine Microscopic WBC 1 0-3 /HPF Urine Squamous Epithelial Cells None seen <5 /hpf Urine Bacteria None seen None Seen /hpf Urine Glucose Normal Normal mg/dL White Blood Count 9.4 4.4-10.8 10^3/uL Red Blood Count 4.82 4.5-5.90 10^6/uL Hemoglobin 12.8 L 13.5-17.5 g/dL Hematocrit 38.6 L 41.0-53.0 % Mean Corpuscular Volume 80.2 80.0-100.0 fL Mean Corpuscular Hemoglobin 26.5 L 28.0-32.0 pg Mean Corpuscular Hemoglobin Concent 33.1 32.0-36.0 g/dL Red Cell Distribution Width 14.8 H 11.8-14.3 % Platelet Count 330 140-450 10^3/uL Mean Platelet Volume 7.4 6.9-10.8 fL Neutrophils (%) (Auto) 72.4 37.0-80.0 % Lymphocytes (%) (Auto) 17.2 10.0-50.0 % Monocytes (%) (Auto) 9.6 0.0-12.0 % Eosinophils (%) (Auto) 0.5 0.0-7.0 % Basophils (%) (Auto) 0.3 0.0-2.0 % Neutrophils # (Auto) 6.8 1.6-8.6 10 ^3/uL Lymphocytes # (Auto) 1.6 0.4-5.4 10 ^3/uL Monocytes # (Auto) 0.9 0-1.3 10 ^3/uL Eosinophils # (Auto) 0.1 0-0.8 10 ^3/uL Basophils # (Auto) 0 0-0.2 10 ^3/uL Nucleated Red Blood Cells 0.1 % Total Bilirubin 0.8 0.2-1.0 mg/dL Aspartate Amino Transferase (AST) 20 13-40 U/L Alanine Aminotransferase (ALT) 53 H 7-40 U/L Alkaline Phosphatase 95 46-116 U/L Total Protein 8.2 5.7-8.2 g/dL Albumin 4.6 3.2-4.8 g/dL Assessment/Plan Problem List: (1) Hydronephrosis (2) Acute renal insufficiency (3) Kidney stone on left side Plan aggressive fluids pain meds strain urine NPO after midnight consult IR for left PCN due to insurance OOA pt will need to follow up with in network urologist for definitive stone management or [facility] Plan discussed with: Patient, Other FLAVIO TOMAS [employer] COLLECTOR Sep 23, 2024 17:26
[2024-09-23] MEDS: TAMSULOSIN HYDROCHLORIDE 0.4 MG CAP PO SCH (18:00)
[2024-09-23] MEDS ORDERED: TAMSULOSIN HYDROCHLORIDE 0.4 MG CAP PO SCH (18:00)
[2024-09-23] MEDS: MANNITOL FTV 25% 12.5 GM/50 ML 50 ML IV ONE (18:34)
[2024-09-23 18:45] LABS: INR 0.98 (0.9-1.15); Prothrombin Time 10.4 sec (9.3-11.8)
[2024-09-23] MEDS: HYDROcodone-ACET 5/325MG TAB PO PRN (23:40)
[2024-09-24] VITALS (12 sets, daily range): BP systolic 114–137; BP diastolic 62–87; PULSE 57–74; RESP 12–20; TEMP 97.4–98.5; O2SAT 96–100
--- NOTE | 2024-09-24 09:49 | DVHPN2 ---
Reviewed: Care Plan, H&P, Labs, Medications, Previous Orders, Radiology Changes from previous H/P or p: No Changes Objective Vitals Vital Signs Date Time Temp Pulse Resp B/P (MAP) Pulse Ox O2 Delivery O2 Flow Rate FiO2 09/24/24 04:45 98.1 72 13 123/63 (83) 98 98.1 09/23/24 20:08 Room Air* 0 21 Intake/Output Intake and Output 09/24/24 07:00 Intake Total 0 ml Output Total 2600 ml Balance -2600 ml Intake Oral 0 ml Output Urine Total 2600 ml Stool Total 0 ml Medications Current Medications Medications Dose Ordered Sig/Davida Route Start Time Stop Time Status Last Admin Dose Admin Acetaminophen/ Hydrocodone Bitart 1 tab Q4HP PRN PO 09/22/24 20:00 09/23/24 23:40 1 TAB Temazepam 15 mg QHSP PRN PO 09/22/24 20:00 Ondansetron HCl 4 mg Q4HP PRN IV 09/22/24 20:00 Acetaminophen 650 mg Q6HP PRN PO 09/22/24 20:00 Sodium Chloride 1,000 ml @ 150 mls/hr Q6H40M IV 09/23/24 13:45 09/24/24 05:47 150 MLS/HR Morphine Sulfate 4 mg Q4HPRN PRN IV 09/23/24 17:15 09/23/24 20:41 4 MG Tamsulosin HCl 0.8 mg QPM PO 09/23/24 17:30 09/23/24 18:34 0.8 MG Laboratory Results Laboratory Tests 09/22/24 16:45 09/23/24 05:05 Coagulation Test 09/23/24 18:12 Prothrombin Time 10.4 sec (9.3-11.8) Prothrombin Time INR 0.98 (0.9-1.15) Urinalysis Test 09/22/24 17:16 Urine Color Colorless (Yellow) Urine Clarity Clear (Clear) Urine pH 5.5 (5.0-9.0) Urine Specific [place] 1.004 (1.001-1.035) Urine Protein Negative (Negative) Urine Ketones Negative (Negative) Urine Blood Negative /uL (Negative) Urine Nitrite Negative (Negative) Urine Bilirubin Negative (Negative) Urine Urobilinogen Normal mg/dL (Negative) Urine Leukocyte Esterase Negative /uL (Negative) Urine RBC 1 /hpf (0 - 3) Urine Microscopic WBC 1 /HPF (0-3) Urine Squamous Epithelial Cells None seen /hpf (<5) Urine Bacteria None seen /hpf (None Seen) Urine Glucose Normal mg/dL (Normal) Labs and/or images reviewed: Labs reviewed by me, Image(s) reviewed by me Assessment/Plan Assessment/Plan Acute left flank pain 6 mm left UVJ stone with hydroureteronephrosis: IV fluids Flomax, [place], consult for urologist nurse practitioner Erum Cosme advised left PCN tube by the radiologist for which orders were placed, advised follow up with in [facility] urologist for definitive kidney stone treatment Acute dehydration: IV fluids Time spent 35 minutes Plan discussed with: Patient My Orders Orders - SEBASTIÁN RAMÍREZ MD Procedure Category Date Status Time Sodium Chloride 0.9% PHA 09/23/24 In Process 13:45 Date of Service: Sep 24, 2024 Billing Provider: SEBASTIÁN RAMÍREZ MD Common Visit Codes: [id number] INP/OBS CARE(HIGH) SEBASTIÁN RAMÍREZ MD Sep 24, 2024 09:49
--- NOTE | 2024-09-24 11:21 | DVH ---
XY PERCUTANEOUS NEPHROSTOMY, HISTORY: Flank pain from obstructive kidney stone here for nephrostomy tube placement. PROCEDURE: Informed consent was obtained. The patient was placed on the fluoroscopic table in a prone position and IV sedation administered. 1 gram of ceftriaxone was given. The left flank was prepped w ith chlorhexidine which was allowed to dry and draped in the usual sterile fashion. Time out was perf ormed. and the soft tissues infiltrated with 1% lidocaine local anesthetic. Under ultrasound guidance , a 21 gauge Accu Stick needle was attempted to be placed into a dilated posterior calyx however was unsuccessful after 3 percutaneous sticks. The procedure was then terminated. A sterile dressing was applied. No immediate complication was identified. DAP 1.30 FLUOROSCOPY TIME: 1.9 minutes. CONTRAST USED: 15 mL . SEDATION: Dr. Katherine Dixon was personally responsible for the administration of moderate sedation during the procedure performed, including the use of an independent trained observer who had no other duties during the procedure. The drugs utilized were IV fentanyl and versed (see nursing log for details). The total time of supervision by the attending physician was approximately 45 minutes. FINDINGS: Mild left hydronephrosis. Unsuccessful percutaneous access and no nephrostomy tube could be placed. IMPRESSION: Mild left hydronephrosis. Unsuccessful percutaneous access and no nephrostomy tube could be placed be cause of a lack of window with laterally located colon, low lying lung pleura, and elevated position of the kidney underneath the ribs. Recommend surgery for stone removal.
--- NOTE | 2024-09-24 17:42 | DVHPN2 ---
Progress Note - Dictate Date Seen: Sep 24, 2024 Medical Necessity Reason Pt with a Central, PICC or Fol: No vital signs Vital Sign Date Time Temp Pulse Resp B/P (MAP) Pulse Ox O2 Delivery O2 Flow Rate FiO2 09/24/24 16:30 98.0 66 16 127/74 (91) 99 98.0 09/24/24 08:15 Room Air* 0 21 Total Intake and Output 09/23/24 09/23/24 09/24/24 15:00 23:00 07:00 Intake Total 0 ml Output Total 2600 ml Balance -2600 ml medications Current Medications Medications Dose Ordered Sig/Davida Route Start Time Stop Time Status Last Admin Dose Admin Acetaminophen/ Hydrocodone Bitart 1 tab Q4HP PRN PO 09/22/24 20:00 09/23/24 23:40 1 TAB Temazepam 15 mg QHSP PRN PO 09/22/24 20:00 Ondansetron HCl 4 mg Q4HP PRN IV 09/22/24 20:00 Acetaminophen 650 mg Q6HP PRN PO 09/22/24 20:00 Sodium Chloride 1,000 ml @ 150 mls/hr Q6H40M IV 09/23/24 13:45 09/24/24 05:47 150 MLS/HR Morphine Sulfate 4 mg Q4HPRN PRN IV 09/23/24 17:15 09/23/24 20:41 4 MG Tamsulosin HCl 0.8 mg QPM PO 09/23/24 17:30 09/23/24 18:34 0.8 MG laboratory and microbiology Laboratory Tests 09/23/24 05:05 09/22/24 16:45 Test 09/23/24 05:05 Range/Units Serum Glucose 92 74-106 mg/dL Assessment/Plan PCN placement aborted due to anatomical issues. This patient was signed out to Dr. Herr for weekend coverage. Dr. Herr is to be notified if patients status changes i.e rising creatine or signs of sepsis. continue medical management, expulsive measures and pain control. Problems(with codes): (1) Hydronephrosis (2) Acute renal insufficiency (3) Kidney stone on left side Plan discussed with: FLAVIO Spencer NP Sep 24, 2024 17:42
[2024-09-25] VITALS (8 sets, daily range): BP systolic 109–144; BP diastolic 51–77; PULSE 55–74; RESP 14–20; TEMP 97.6–98.4; O2SAT 96–98
--- NOTE | 2024-09-25 08:46 | DVHPN2 ---
Reviewed: Care Plan, H&P, Labs, Medications, Previous Orders, Radiology Changes from previous H/P or p: No Changes Objective Vitals Vital Signs Date Time Temp Pulse Resp B/P (MAP) Pulse Ox O2 Delivery O2 Flow Rate FiO2 09/25/24 05:00 97.9 55 20 119/74 (89) 98 97.9 09/24/24 20:00 Room Air* 0 21 Intake/Output Intake and Output 09/25/24 07:00 Intake Total 5200 ml Output Total 3375 ml Balance 1825 ml Intake Oral 2800 ml IV Total 2400 ml Output Urine Total 3375 ml # Voids 6 Medications Current Medications Medications Dose Ordered Sig/Davida Route Start Time Stop Time Status Last Admin Dose Admin Acetaminophen/ Hydrocodone Bitart 1 tab Q4HP PRN PO 09/22/24 20:00 09/24/24 20:30 1 TAB Temazepam 15 mg QHSP PRN PO 09/22/24 20:00 Ondansetron HCl 4 mg Q4HP PRN IV 09/22/24 20:00 Acetaminophen 650 mg Q6HP PRN PO 09/22/24 20:00 Sodium Chloride 1,000 ml @ 150 mls/hr Q6H40M IV 09/23/24 13:45 09/25/24 02:26 150 MLS/HR Morphine Sulfate 4 mg Q4HPRN PRN IV 09/23/24 17:15 09/23/24 20:41 4 MG Tamsulosin HCl 0.8 mg QPM PO 09/23/24 17:30 09/24/24 18:00 0.8 MG Laboratory Results Laboratory Tests 09/22/24 16:45 09/23/24 05:05 Urinalysis Test 09/22/24 17:16 Urine Color Colorless (Yellow) Urine Clarity Clear (Clear) Urine pH 5.5 (5.0-9.0) Urine Specific [place] 1.004 (1.001-1.035) Urine Protein Negative (Negative) Urine Ketones Negative (Negative) Urine Blood Negative /uL (Negative) Urine Nitrite Negative (Negative) Urine Bilirubin Negative (Negative) Urine Urobilinogen Normal mg/dL (Negative) Urine Leukocyte Esterase Negative /uL (Negative) Urine RBC 1 /hpf (0 - 3) Urine Microscopic WBC 1 /HPF (0-3) Urine Squamous Epithelial Cells None seen /hpf (<5) Urine Bacteria None seen /hpf (None Seen) Urine Glucose Normal mg/dL (Normal) Labs and/or images reviewed: Labs reviewed by me, Image(s) reviewed by me Assessment/Plan Assessment/Plan Acute left flank pain 6 mm left UVJ stone with hydroureteronephrosis: IV fluids Flomax, [place], consult for urologist nurse practitioner Erum Cosme PCN tube placement was aborted secondary to anatomical issues Acute dehydration: IV fluids Time spent 35 minutes Plan discussed with: Patient Date of Service: Sep 25, 2024 Billing Provider: SEBASTIÁN RAMÍREZ MD Common Visit Codes: [id number] INP/OBS CARE(HIGH) SEBASTIÁN RAMÍREZ MD Sep 25, 2024 08:46
[2024-09-25 11:14] LABS: Chloride 105 mmol/L (98-107); Potassium 4.2 mmol/L (3.5-5.1); Sodium 138 mmol/L (136-145)
[2024-09-25 11:15] LABS: Anion Gap 8 (5-15); Carbon Dioxide 25 mmol/L (20-31)
[2024-09-25 11:16] LABS: Calcium 9.9 mg/dL (8.7-10.4)
--- NOTE | 2024-09-25 11:18 | DVH ---
EXAM: XR Abdomen, 1 View CLINICAL INDICATION: LEFT KIDNEY STONE TECHNIQUE: Frontal supine view of the abdomen/pelvis. COMPARISON: None FINDINGS: GASTROINTESTINAL TRACT: Unremarkable. No dilation. BONES/JOINTS: Unremarkable. No acute fracture. OTHER FINDINGS: . . IMPRESSION: Nonobstructive bowel gas pattern.
[2024-09-25 11:20] LABS: Glucose 95 mg/dL (74-106)
[2024-09-25 11:21] LABS: BUN/Creatinine Ratio 8.5 (10.0-20.0); Blood Urea Nitrogen 13 mg/dL (9-23)
[2024-09-25] MEDS: fentaNYL CITRATE 100 MCG/2 ML VL ONE (13:18)
[2024-09-25] MEDS: LIDOCAINE 2%HCL (LOCAL ANESTH.) INJ 20ML MDV ONE ×2 (13:19→13:20)
[2024-09-25] MEDS: ceFAZolin 1GM VL ONE (13:19)
[2024-09-25] MEDS: MIDAZOLAM HCL 2MG/2ML 2ml VIAL (1mg/ml) ONE (13:19)
[2024-09-25] MEDS: IODIXANOL 320MG/ML 100ML BTL IV ONE (13:19)
[2024-09-25] MEDS: cefTRIAXone 1GM/50ML D5W 50 ML IV ONE (13:20)
--- NOTE | 2024-09-25 17:30 | DVHINCON2 ---
Date of service: Sep 25, 2024 Referring Physician Ayan Reason for Consultation left ureteral stone History of Present Illness admitted 2 days ago with left flank pain,no prior stones; CT shows 8mm stone at left uvj with hydro; attempted nephrostogram unsuccessful 09/24; no complaints today;KUB early shows possible stone still at left uvj Past Medical History reviewed Past Surgical History reviewed Family History: Alcoholism G8 MOTHER G8 FATHER Depression G8 MOTHER Allergies: Coded Allergies: NO KNOWN ALLERGIES (Unverified , 09/19/24) Home Meds Active Scripts Hydrocodone-Acetaminophen (Hydrocodone Bitartrate/AC 5-325 mg) 1 Tab Tab, 1 TAB PO TID PRN, #20 TAB Prov:SOLITARIO WALKER 09/19/24 Tamsulosin Hcl (Flomax) 0.4 Mg Cap, 1 CAP PO DAILY for 10 Days, #10 CAP 11 Refills Prov:SOLITARIO WALKER 09/19/24 Review of Systems reviewed Vital Signs Vital Signs Date Time Temp Pulse Resp B/P (MAP) Pulse Ox O2 Delivery O2 Flow Rate FiO2 09/25/24 13:00 97.6 68 15 133/77 (95) 98 97.6 09/25/24 08:05 Room Air* 0 21 Labs/Diagnostic Data Labs Test 09/25/24 10:35 09/23/24 18:12 09/23/24 05:05 09/22/24 18:32 Range/Units Sodium Level 138 136-145 mmol/L Potassium Level 4.2 3.5-5.1 mmol/L Chloride Level 105 98-107 mmol/L Carbon Dioxide Level 25 20-31 mmol/L Anion Gap 8 5-15 Blood Urea Nitrogen 13 9-23 mg/dL Creatinine 1.53 H 0.700-1.30 mg/dL Glomerular Filtration Rate Calc 60 >90 mL/min BUN/Creatinine Ratio 8.5 L 10.0-20.0 Serum Glucose 95 74-106 mg/dL Calcium Level 9.9 8.7-10.4 mg/dL Prothrombin Time 10.4 9.3-11.8 sec Prothrombin Time INR 0.98 0.9-1.15 Hepatitis B Surface Antibody Positive H Negative Hepatitis C Antibody Negative Negative Lactic Acid Level 1.4 0.4-2.0 mmol/L Test 09/22/24 17:16 09/22/24 16:45 Range/Units Urine Color Colorless Yellow Urine Clarity Clear Clear Urine pH 5.5 5.0-9.0 Urine Specific [place] 1.004 1.001-1.035 Urine Protein Negative Negative Urine Ketones Negative Negative Urine Blood Negative Negative /uL Urine Nitrite Negative Negative Urine Bilirubin Negative Negative Urine Urobilinogen Normal Negative mg/dL Urine Leukocyte Esterase Negative Negative /uL Urine RBC 1 0 - 3 /hpf Urine Microscopic WBC 1 0-3 /HPF Urine Squamous Epithelial Cells None seen <5 /hpf Urine Bacteria None seen None Seen /hpf Urine Glucose Normal Normal mg/dL White Blood Count 9.4 4.4-10.8 10^3/uL Red Blood Count 4.82 4.5-5.90 10^6/uL Hemoglobin 12.8 L 13.5-17.5 g/dL Hematocrit 38.6 L 41.0-53.0 % Mean Corpuscular Volume 80.2 80.0-100.0 fL Mean Corpuscular Hemoglobin 26.5 L 28.0-32.0 pg Mean Corpuscular Hemoglobin Concent 33.1 32.0-36.0 g/dL Red Cell Distribution Width 14.8 H 11.8-14.3 % Platelet Count 330 140-450 10^3/uL Mean Platelet Volume 7.4 6.9-10.8 fL Neutrophils (%) (Auto) 72.4 37.0-80.0 % Lymphocytes (%) (Auto) 17.2 10.0-50.0 % Monocytes (%) (Auto) 9.6 0.0-12.0 % Eosinophils (%) (Auto) 0.5 0.0-7.0 % Basophils (%) (Auto) 0.3 0.0-2.0 % Neutrophils # (Auto) 6.8 1.6-8.6 10 ^3/uL Lymphocytes # (Auto) 1.6 0.4-5.4 10 ^3/uL Monocytes # (Auto) 0.9 0-1.3 10 ^3/uL Eosinophils # (Auto) 0.1 0-0.8 10 ^3/uL Basophils # (Auto) 0 0-0.2 10 ^3/uL Nucleated Red Blood Cells 0.1 % Total Bilirubin 0.8 0.2-1.0 mg/dL Aspartate Amino Transferase (AST) 20 13-40 U/L Alanine Aminotransferase (ALT) 53 H 7-40 U/L Alkaline Phosphatase 95 46-116 U/L Total Protein 8.2 5.7-8.2 g/dL Albumin 4.6 3.2-4.8 g/dL Assessment left ureteral stone Plan/Recommendation continue hydration ,analgesia,KUB in am Plan discussed with: Patient POONAM ZUNIGA MD Sep 25, 2024 17:30
[2024-09-26] VITALS (7 sets, daily range): BP systolic 121–131; BP diastolic 64–72; PULSE 56–88; RESP 14–18; TEMP 97.8–98.5; O2SAT 94–100
--- NOTE | 2024-09-26 05:44 | DVH ---
Exam: XY KUB ABDOMEN SINGLE VIEW Indication: left uvj stone Comparison: XY KUB ABDOMEN SINGLE VIEW on DOS: 09/25/24 Technique: A portable supine AP radiograph of the abdomen is obtained. Impression: Bowel-gas pattern is nonobstructed. Calculus of the left ureterovesicular junction measuring 0.7 cm a ppears similar in position when compared to prior CT. Additional phleboliths are noted.
[2024-09-26 06:41] LABS: Basophils # (auto) 0 10 ^3/uL (0-0.2); Hemoglobin 11.4 g/dL (13.5-17.5); Mean Corpuscular Volume 80.4 fL (80.0-100.0); Monocytes # (auto) 0.5 10 ^3/uL (0-1.3); Neutrophils # (auto) 2.2 10 ^3/uL (1.6-8.6)
[2024-09-26 06:43] LABS: Basophils % (auto) 0.8 % (0.0-2.0); Eosinophils # (auto) 0.3 10 ^3/uL (0-0.8); Eosinophils % (auto) 5.4 % (0.0-7.0); Hematocrit 34.5 % (41.0-53.0); Lymphocytes # (auto) 1.7 10 ^3/uL (0.4-5.4); Lymphocytes % (auto) 35.9 % (10.0-50.0); Mean Corpuscular Hemoglobin 26.5 pg (28.0-32.0); Monocytes % (auto) 11.1 % (0.0-12.0); Neutrophils % (auto) 46.8 % (37.0-80.0); Nucleated Red Blood Cells % 0.2 %; Platelet Count (auto) 311 10^3/uL (140-450); Red Cell Distribution Width 14.7 % (11.8-14.3); White Blood Cell 4.7 10^3/uL (4.4-10.8)
[2024-09-26 07:00] LABS: Albumin 4.3 g/dL (3.2-4.8); Alkaline Phosphatase 75 U/L (46-116); Anion Gap 8 (5-15); Aspartate Aminotransferase 36 U/L (13-40); BUN/Creatinine Ratio 11.1 (10.0-20.0); Blood Urea Nitrogen 16 mg/dL (9-23); Calcium 9.9 mg/dL (8.7-10.4); Carbon Dioxide 22 mmol/L (20-31); Glucose 92 mg/dL (74-106); Potassium 4.4 mmol/L (3.5-5.1); Sodium 137 mmol/L (136-145); Total Protein 7.3 g/dL (5.7-8.2)
[2024-09-26 07:08] LABS: Alanine Aminotransferase 71 U/L (7-40); Chloride 107 mmol/L (98-107)
[2024-09-26 07:11] LABS: Bilirubin, Total 0.5 mg/dL (0.2-1.0)
--- NOTE | 2024-09-26 10:53 | DVHPN2 ---
Reviewed: Care Plan, H&P, Labs, Medications, Previous Orders, Radiology Changes from previous H/P or p: No Changes Objective Vitals Vital Signs Date Time Temp Pulse Resp B/P (MAP) Pulse Ox O2 Delivery O2 Flow Rate FiO2 09/26/24 09:00 98.0 62 16 131/65 (87) 100 98.0 09/25/24 20:00 Room Air* 0 21 Intake/Output Intake and Output 09/26/24 07:00 Intake Total 6000 ml Output Total 7780 ml Balance -1780 ml Intake Oral 3400 ml IV Total 2600 ml Output Urine Total 7780 ml # Voids 6 # Bowel Movements 2 Medications Current Medications Medications Dose Ordered Sig/Davida Route Start Time Stop Time Status Last Admin Dose Admin Acetaminophen/ Hydrocodone Bitart 1 tab Q4HP PRN PO 09/22/24 20:00 09/25/24 21:31 1 TAB Temazepam 15 mg QHSP PRN PO 09/22/24 20:00 Ondansetron HCl 4 mg Q4HP PRN IV 09/22/24 20:00 Acetaminophen 650 mg Q6HP PRN PO 09/22/24 20:00 Sodium Chloride 1,000 ml @ 150 mls/hr Q6H40M IV 09/23/24 13:45 09/26/24 06:54 150 MLS/HR Morphine Sulfate 4 mg Q4HPRN PRN IV 09/23/24 17:15 09/23/24 20:41 4 MG Tamsulosin HCl 0.8 mg QPM PO 09/23/24 17:30 09/25/24 18:32 0.8 MG Laboratory Results Laboratory Tests 09/26/24 05:25 Chemistry Test 09/26/24 05:25 Albumin 4.3 g/dL (3.2-4.8) Calcium Level 9.9 mg/dL (8.7-10.4) Total Protein 7.3 g/dL (5.7-8.2) LFT Test 09/26/24 05:25 Alanine Aminotransferase (ALT) 71 U/L (7-40) H Alkaline Phosphatase 75 U/L (46-116) Aspartate Amino Transferase (AST) 36 U/L (13-40) Total Bilirubin 0.5 mg/dL (0.2-1.0) Urinalysis Test 09/22/24 17:16 Urine Color Colorless (Yellow) Urine Clarity Clear (Clear) Urine pH 5.5 (5.0-9.0) Urine Specific [place] 1.004 (1.001-1.035) Urine Protein Negative (Negative) Urine Ketones Negative (Negative) Urine Blood Negative /uL (Negative) Urine Nitrite Negative (Negative) Urine Bilirubin Negative (Negative) Urine Urobilinogen Normal mg/dL (Negative) Urine Leukocyte Esterase Negative /uL (Negative) Urine RBC 1 /hpf (0 - 3) Urine Microscopic WBC 1 /HPF (0-3) Urine Squamous Epithelial Cells None seen /hpf (<5) Urine Bacteria None seen /hpf (None Seen) Urine Glucose Normal mg/dL (Normal) Labs and/or images reviewed: Labs reviewed by me, Image(s) reviewed by me Assessment/Plan Assessment/Plan Acute left flank pain 6 mm left UVJ stone with hydroureteronephrosis: IV fluids Flomax, [place], consult for urologist Dr. Herr appreciated, KUB shows 7 mm stone still present in the left UVJ, patient still complaining of pain PCN tube placement was aborted secondary to anatomical issues Acute dehydration: IV fluids Time spent 35 minutes Continue current management Plan discussed with: Patient Date of Service: Sep 26, 2024 Billing Provider: SEBASTIÁN RAMÍREZ MD Common Visit Codes: [id number] INP/OBS CARE(HIGH) SEBASTIÁN RAMÍREZ MD Sep 26, 2024 10:53
[2024-09-26] MEDS: TAMSULOSIN HYDROCHLORIDE 0.4 MG CAP PO ONE (18:10)
--- NOTE | 2024-09-26 20:00 | DVH ---
INDICATION: hydronephrosis TECHNIQUE: Multiple real-time sonographic images of the kidneys and bladder were obtained. COMPARISON: None FINDINGS: The right kidney measures 10.8 cm in length, which is normal in size. There is normal echogenicity of the right kidney. No hydronephrosis. There is a small echogenic structure nonobstructing in the righ t kidney measuring 5 x 7 x 7 mm The left kidney measures 12.2 cm in length, which is normal in size. There is normal echogenicity of the left kidney. Mild left hydronephrosis. There is a 4 x 3 x 3 mm calcification nonobstructing in th e left kidney. No large intraluminal masses are seen in the bladder. Prior to voiding the bladder volume measures volume 100 mL cc. Patient had no urge to void. IMPRESSION: 1. 10.8 cm long right kidney no hydronephrosis 2. Small calculus in the right kidney measuring 5 x 7 x 7 mm. 3. Left kidney measures 12.2 cm there is mild hydronephrosis of the left kidney. 4. There is a 4 x 3 x 3 mm calculus in the left kidney.
[2024-09-27 01:00] VITALS: BP 110/62; PULSE 69; RESP 17; TEMP 97.9; O2SAT 99
[2024-09-27 05:00] VITALS: BP 128/76; PULSE 97; RESP 18; TEMP 97.8; O2SAT 100
--- NOTE | 2024-09-27 08:55 | DVHPN2 ---
Progress Note - Dictate Date Seen: Sep 27, 2024 Medical Necessity Reason Pt with a Central, PICC or Fol: No vital signs Vital Sign Date Time Temp Pulse Resp B/P (MAP) Pulse Ox O2 Delivery O2 Flow Rate FiO2 09/27/24 08:15 Room Air* 0 21 09/27/24 05:00 97.8 97 18 128/76 (93) 100 97.8 Total Intake and Output 09/26/24 09/26/24 09/27/24 15:00 23:00 07:00 Intake Total 900 ml 1725 ml 2428 ml Output Total 1300 ml 1400 ml Balance 900 ml 425 ml 1028 ml medications Current Medications Medications Dose Ordered Sig/Davida Route Start Time Stop Time Status Last Admin Dose Admin Acetaminophen/ Hydrocodone Bitart 1 tab Q4HP PRN PO 09/22/24 20:00 09/25/24 21:31 1 TAB Temazepam 15 mg QHSP PRN PO 09/22/24 20:00 Ondansetron HCl 4 mg Q4HP PRN IV 09/22/24 20:00 Acetaminophen 650 mg Q6HP PRN PO 09/22/24 20:00 Sodium Chloride 1,000 ml @ 150 mls/hr Q6H40M IV 09/23/24 13:45 09/27/24 03:20 150 MLS/HR Morphine Sulfate 4 mg Q4HPRN PRN IV 09/23/24 17:15 09/23/24 20:41 4 MG Tamsulosin HCl 0.8 mg QPM PO 09/23/24 17:30 09/25/24 18:32 0.8 MG laboratory and microbiology Laboratory Tests 09/26/24 05:25 Test 09/26/24 05:25 Range/Units Serum Glucose 92 74-106 mg/dL Assessment/Plan PCN placement aborted due to anatomical issues. This patient was signed out to Dr. Herr for weekend coverage. Creatinine improved KUB unchanged Renal US reviewed - mild hydro If pain controlled patient may be discharged F/U with in network urologist for definitive management Problems(with codes): (1) Hydronephrosis (2) Acute renal insufficiency (3) Kidney stone on left side FLAVIO TOMAS NP Sep 27, 2024 08:55
[2024-09-27 09:00] VITALS: BP 131/69; PULSE 63; RESP 17; TEMP 97.8; O2SAT 99
[2024-09-27] MEDS ORDERED: TAMS-35 PO (11:16)
[2024-09-27] MEDS ORDERED: HYDR-4902 PO (11:16)
--- NOTE | 2024-09-27 11:19 | DVHPN2 ---
Reviewed: Care Plan, H&P, Labs, Medications, Previous Orders, Radiology Changes from previous H/P or p: No Changes Objective Vitals Vital Signs Date Time Temp Pulse Resp B/P (MAP) Pulse Ox O2 Delivery O2 Flow Rate FiO2 09/27/24 09:00 97.8 63 17 131/69 (89) 99 97.8 09/27/24 08:15 Room Air* 0 21 Intake/Output Intake and Output 09/27/24 07:00 Intake Total 5053 ml Output Total 2700 ml Balance 2353 ml Intake Oral 1878 ml IV Total 3175 ml Output Urine Total 2700 ml Medications Current Medications Medications Dose Ordered Sig/Davida Route Start Time Stop Time Status Last Admin Dose Admin Acetaminophen/ Hydrocodone Bitart 1 tab Q4HP PRN PO 09/22/24 20:00 09/25/24 21:31 1 TAB Temazepam 15 mg QHSP PRN PO 09/22/24 20:00 Ondansetron HCl 4 mg Q4HP PRN IV 09/22/24 20:00 Acetaminophen 650 mg Q6HP PRN PO 09/22/24 20:00 Sodium Chloride 1,000 ml @ 150 mls/hr Q6H40M IV 09/23/24 13:45 09/27/24 09:53 150 MLS/HR Morphine Sulfate 4 mg Q4HPRN PRN IV 09/23/24 17:15 09/23/24 20:41 4 MG Tamsulosin HCl 0.8 mg QPM PO 09/23/24 17:30 09/25/24 18:32 0.8 MG Laboratory Results Laboratory Tests 09/26/24 05:25 Urinalysis Test 09/22/24 17:16 Urine Color Colorless (Yellow) Urine Clarity Clear (Clear) Urine pH 5.5 (5.0-9.0) Urine Specific [place] 1.004 (1.001-1.035) Urine Protein Negative (Negative) Urine Ketones Negative (Negative) Urine Blood Negative /uL (Negative) Urine Nitrite Negative (Negative) Urine Bilirubin Negative (Negative) Urine Urobilinogen Normal mg/dL (Negative) Urine Leukocyte Esterase Negative /uL (Negative) Urine RBC 1 /hpf (0 - 3) Urine Microscopic WBC 1 /HPF (0-3) Urine Squamous Epithelial Cells None seen /hpf (<5) Urine Bacteria None seen /hpf (None Seen) Urine Glucose Normal mg/dL (Normal) Labs and/or images reviewed: Labs reviewed by me, Image(s) reviewed by me Assessment/Plan Assessment/Plan Acute left flank pain : Now resoved. 6 mm left UVJ stone with hydroureteronephrosis: IV fluids Flomax, [place], consult for urologist Dr. Herr appreciated, KUB shows 7 mm stone still present in the left UVJ, patient has no pain and urology cleared for discharge to follow up with the in [facility] urologist for definitive treatment of the stone PCN tube placement was aborted secondary to anatomical issues Acute dehydration: Resolved Plan discussed with: Patient Date of Service: Sep 27, 2024 Billing Provider: SEBASTIÁN RAMÍREZ MD Common Visit Codes: [id number] INP/OBS CARE(HIGH) SEBASTIÁN RAMÍREZ MD Sep 27, 2024 11:19
--- NOTE | 2024-09-27 11:24 | DVHDS2 ---
Discharge Summary Date of Admission Sep 22, 2024 at 19:48 Date of Discharge: Sep 27, 2024 Admitting Diagnosis Left flank pain Wounds: None Labs/Diagnostic Data: Laboratory Results Test 09/26/24 05:25 09/23/24 18:12 09/23/24 05:05 09/22/24 18:32 White Blood Count 4.7 10^3/uL (4.4-10.8) Red Blood Count 4.30 10^6/uL (4.5-5.90) Hemoglobin 11.4 g/dL (13.5-17.5) Hematocrit 34.5 % (41.0-53.0) Mean Corpuscular Volume 80.4 fL (80.0-100.0) Mean Corpuscular Hemoglobin 26.5 pg (28.0-32.0) Mean Corpuscular Hemoglobin Concent 33.0 g/dL (32.0-36.0) Red Cell Distribution Width 14.7 % (11.8-14.3) Platelet Count 311 10^3/uL (140-450) Mean Platelet Volume 7.5 fL (6.9-10.8) Neutrophils (%) (Auto) 46.8 % (37.0-80.0) Lymphocytes (%) (Auto) 35.9 % (10.0-50.0) Monocytes (%) (Auto) 11.1 % (0.0-12.0) Eosinophils (%) (Auto) 5.4 % (0.0-7.0) Basophils (%) (Auto) 0.8 % (0.0-2.0) Neutrophils # (Auto) 2.2 10 ^3/uL (1.6-8.6) Lymphocytes # (Auto) 1.7 10 ^3/uL (0.4-5.4) Monocytes # (Auto) 0.5 10 ^3/uL (0-1.3) Eosinophils # (Auto) 0.3 10 ^3/uL (0-0.8) Basophils # (Auto) 0 10 ^3/uL (0-0.2) Nucleated Red Blood Cells 0.2 % Sodium Level 137 mmol/L (136-145) Potassium Level 4.4 mmol/L (3.5-5.1) Chloride Level 107 mmol/L (98-107) Carbon Dioxide Level 22 mmol/L (20-31) Anion Gap 8 (5-15) Blood Urea Nitrogen 16 mg/dL (9-23) Creatinine 1.44 mg/dL (0.700-1.30) Glomerular Filtration Rate Calc 65 mL/min (>90) BUN/Creatinine Ratio 11.1 (10.0-20.0) Serum Glucose 92 mg/dL (74-106) Calcium Level 9.9 mg/dL (8.7-10.4) Total Bilirubin 0.5 mg/dL (0.2-1.0) Aspartate Amino Transferase (AST) 36 U/L (13-40) Alanine Aminotransferase (ALT) 71 U/L (7-40) Alkaline Phosphatase 75 U/L (46-116) Total Protein 7.3 g/dL (5.7-8.2) Albumin 4.3 g/dL (3.2-4.8) Prothrombin Time 10.4 sec (9.3-11.8) Prothrombin Time INR 0.98 (0.9-1.15) Hepatitis B Surface Antibody Positive (Negative) Hepatitis C Antibody Negative (Negative) Lactic Acid Level 1.4 mmol/L (0.4-2.0) Test 09/22/24 17:16 Urine Color Colorless (Yellow) Urine Clarity Clear (Clear) Urine pH 5.5 (5.0-9.0) Urine Specific [place] 1.004 (1.001-1.035) Urine Protein Negative (Negative) Urine Ketones Negative (Negative) Urine Blood Negative /uL (Negative) Urine Nitrite Negative (Negative) Urine Bilirubin Negative (Negative) Urine Urobilinogen Normal mg/dL (Negative) Urine Leukocyte Esterase Negative /uL (Negative) Urine RBC 1 /hpf (0 - 3) Urine Microscopic WBC 1 /HPF (0-3) Urine Squamous Epithelial Cells None seen /hpf (<5) Urine Bacteria None seen /hpf (None Seen) Urine Glucose Normal mg/dL (Normal) Other Laboratory Tests 09/26/24 05:25 Brief Hx & Hospital Course: Syncope unknown male with no previous medical history came in complaining of left flank pain found to have 6 mm left UVJ stone with hydroureteronephrosis. Treated with IV fluids Flomax and pain medication. seen by Urology nurse practitioner Jacqueline Cosme and urologist Dr. Herr. The patient's pain has subsided no fever kidney ultrasound negative and patient requesting to be discharged. Urology recommended follow up with his in network urologist for definitive treatment of the kidney stone. Consults/Reason for consult Urology Dr. Herr Nurse practitioner Jacqueline Cosme Operations or Procedures CT abdomen pelvis without contrast Renal ultrasound Condition at Discharge: Fair Final Diagnosis/Problems List Acute left flank pain : Now resoved. 6 mm left UVJ stone with hydroureteronephrosis: IV fluids Flomax, [place], consult for urologist Dr. Herr appreciated, KUB shows 7 mm stone still present in the left UVJ, patient has no pain and urology cleared for discharge to follow up with the in network urologist for definitive treatment of the stone PCN tube placement was aborted secondary to anatomical issues Acute dehydration: Resolved Discharge Disposition: Home Discharge Instruct/Medications Diet: Regular Activity: Light activity Follow Up/Referral: Follow up with the [facility] Urologist for definitive treatment of the kidney stone Call your insurance to find out the [facility] urologist Go to the nearest ER if symptoms worsen Medications: Flomax [place] Transmitted to pharmacy 39 (Time Taken for discharge summary 39 minutes) Discharge Statement: "Patient was advised to return to the ER or call 911 if any headaches, dizziness, shortness of breath, chest pain, abdominal pain, bleeding, fevers, or worsening of medical condition. Patient was counseled about treatment plan, medications, possible side effects, patientverbalized understanding. All questions were answered to the best of my ability. This discharge took greater then 30 minutes in planning, reviewing documentation, counseling the patient, and discussing with other team members." ASSESSMENT ASSESSMENT Hospital Course Improved Assessment Acute left flank pain : Now resoved. 6 mm left UVJ stone with hydroureteronephrosis: IV fluids Flomax, [place], consult for urologist Dr. Herr appreciated, KUB shows 7 mm stone still present in the left UVJ, patient has no pain and urology cleared for discharge to follow up with the in [facility] urologist for definitive treatment of the stone PCN tube placement was aborted secondary to anatomical issues Acute dehydration: Resolved Date of Service: Sep 27, 2024 Billing Provider: SEBASTIÁN RAMÍREZ MD Common Visit Codes: [id number] DISCH DAY >30min SEBASTIÁN RAMÍREZ MD Sep 27, 2024 11:24
== END 2024-09-27 14:00 | disposition home or self-care (01) | DRG 465 ==
LOC: ER 15:44 → OVERFLOW 16:05 → UNDODEPER 09-23 02:00 → EAST 09-23 20:06
PROVIDERS: ADMIT Family Medicine; ATTEND Family Medicine
PROC: 0TJ53ZZ Inspection of Kidney, Percutaneous Approach (ICD-10-PCS; principal; 2024-09-24)
DX: N13.2 Hydronephrosis with renal and ureteral calculous obstruction (principal); N17.0 Acute kidney failure with tubular necrosis; N13.9 Obstructive and reflux uropathy, unspecified; E86.0 Dehydration; Z81.8 Family history of other mental and behavioral disorders; Z79.899 Other long term (current) drug therapy
CPT/HCPCS: 36415; 50432; 74018; 74176; 74425; 76775; 76942; 80048; 80053; 81001; 83605; 85025; 85610; 86706; 86803; 99152; G0378; J0690; J2250; Q9967